=== PATIENT | female | born 1980 | race Caucasian/White ===

== ENCOUNTER 2016-02-26 21:53 | Emergency (ER) | payer OTHER ==
[~2016-02-26] VITALS: Ht 160 cm; Wt 72.6 kg
[~2016-02-26 21:53] MED LIST: ANAPROX DS550 MG PO; BACTRIM DS 8001 TA1 PO; CLEOCIN150 MG PO; CORTISPORIN SUS10 ML OT; CYCLOBENZAPRINE10 MG PO; CYCLOBENZAPRINE5 M3 PO; LEVOFLOXACIN500 MG PO; Motrin,Rufen800 MG PO; NAPROSYN500 MG PO; NKHM; NORCO 325 MG-51 TAB PO; NORCO 5-325 TA1 EACH PO; OVRAL-21 50 MCG1 TAB PO; PEN-VEE K500 MG PO; ROBITUSSIN DM120 ML PO; SEPTRA DS 800 M1 TAB PO; SERTRALINE HYDR50 MG PO; ULTRAM50 MG PO; VICODIN 5/500 505 MG PO; VOLTAREN50 M1 PO; [UNRECOGNIZED DRUG - CODE]
[2016-02-26] MEDS ORDERED: CYCLOBENZAPRINE10 MG PO (23:06)
[2016-02-26] MEDS ORDERED: NAPROSYN500 MG PO (23:06)
== END 2016-02-27 00:34 | disposition home or self-care (01) ==
LOC: ED 21:53
DX: S16.1XXA Strain of muscle, fascia and tendon at neck level, initial encounter (principal); S00.03XA Contusion of scalp, initial encounter; Z88.0 Allergy status to penicillin; W22.8XXA Striking against or struck by other objects, initial encounter; Y93.89 Activity, other specified; Y92.9 Unspecified place or not applicable; Y99.9 Unspecified external cause status

== ENCOUNTER 2017-02-13 22:39 | Emergency (ER) | payer OTHER ==
[~2017-02-13] VITALS: Ht 160 cm; Wt 72.6 kg
[2017-02-14] MEDS ORDERED: TESSALON PERLE100 MG PO (00:03)
== END 2017-02-14 00:10 | disposition home or self-care (01) ==
LOC: ED 22:39
DX: J06.9 Acute upper respiratory infection, unspecified (principal); Z88.0 Allergy status to penicillin; Z79.899 Other long term (current) drug therapy

== ENCOUNTER 2018-01-16 15:13 | Emergency (ER) | payer SELFPAY ==
[~2018-01-16] VITALS: Wt 83.9 kg
--- NOTE | ~2018-01-16 | EKG ---
[place], [place] ELECTROCARDIOGRAM REPORT NAME: MARINA BARNETT UNIT #: [id number] ROOM: DOCTOR: EPIPHANY DRAFT REPORT BIRTHDATE: [birth year] [facility] Test Date: 2018-01-16 Test Time: 16:04:04 Pat Name: MARINA BARNETT Department: ER Room: Gender: F [employer]: Nadeen Dowell : 1980 Requested By: JENNIE RAMIREZ Order Number: [id number] Reading MD: Berta Mercado MD Measurements Intervals [place] Rate: 89 P: 49 MS: 134 QRS: 4 QRSD: 91 T: 3 QT: 342 QTc: 417 Interpretive Statements Sinus rhythm RSR' in V1 Baseline wander in lead(s) V2 Electronically Signed On 01-17-2018 3:22:09 PST by Berta Mercado MD CM:EKGRPT:ELECTROCARDIOGRAM REPORT [id number] JENNIE RAMIREZ EPIPHANY DRAFT REPORT JENNIE RAMIREZ
[~2018-01-16 15:13] MED LIST changes: +TESSALON PERLE100 MG PO
[2018-01-16 16:25] LABS: BASO # 0.1 10*3/uL (0.0-0.1); BASO % 0.6 % (0.0-1.0); EOS # 0.7 10*3/uL (0.0-0.4); EOS % 6.9 % (1.0-4.0); LYMPH % 29.5 % (27.0-41.0); MEAN CELL VOLUME 89.7 fl (81.0-99.0); MEAN CORPUSCULAR HGB 30.6 pg (27.0-31.0); MEAN CORPUSCULAR HGB CONC 34.1 g/dl (33.0-37.0); MEAN PLATELET VOLUME 10.1 fl (9.6-12.3); MONO # 0.8 10*3/uL (0.1-1.0); MONO % 7.5 % (3.0-9.0); NEUT # 5.7 10*3/uL (2.3-7.9); NEUT % 55.1 % (47.0-73.0); PLATELET COUNT AUTOMATED 230 10*3/uL (130-400); RED BLOOD COUNT 4.57 10*6/uL (4.10-5.10); RED CELL DISTRI WIDTH 12.9 % (0-14.5); WHITE BLOOD COUNT 10.3 10*3/uL (4.8-10.8)
[2018-01-16 16:42] LABS: ALBUMIN 3.5 gm/dl (3.1-4.5); ALKALINE PHOSPHATASE 42 U/L (45-117); BUN 13 mg/dl (7-24); CHLORIDE 103 mmol/L (98-107); CREATININE 1.17 mg/dL (0.55-1.02); POTASSIUM 3.6 mmol/L (3.5-5.1); SGOT/AST 17 IU/L (3-35); SGPT/ALT 37 U/L (12-78); SODIUM 136 mmol/L (136-145); TOTAL PROTEIN 7.6 gm/dL (6.4-8.2)
[2018-01-16 16:45] LABS: TROPONIN I < 0.015 ng/ml (<0.045)
[2018-01-16 17:50] LABS: BILIRUBIN NEGATIVE (NEGATIVE); BLOOD NEGATIVE (NEGATIVE); CLARITY CLEAR (CLEAR); COLOR YELLOW (YELLOW); GLUCOSE NEGATIVE (NEGATIVE); KETONE NEGATIVE (NEGATIVE); LEUKO ESTERASE NEGATIVE (NEGATIVE); NITRITE NEGATIVE (NEGATIVE); PH 6.5 (5.0-9.0); SPECIFIC GRAVITY 1.015 (1.005-1.030); UROBILINOGEN 0.2 E.U./dl (0.2-1.0)
[2018-01-16] MEDS ORDERED: ZITHROMAX250 MG PO (17:52)
[2018-01-16] MEDS ORDERED: CHERATUSSIN AC118 M1 PO (17:52)
[2018-01-16] MEDS ORDERED: PREDNISONE20 M1 PO (17:52)
[2018-01-16] MEDS ORDERED: ALBUTEROL2.5 MG/0.5 INH (17:52)
[2018-01-16 18:00] LABS: BACTERIA 1+
[2018-01-16 18:01] LABS: RBC 0-2 rbc/hpf (0-2); WBC 0-2 wbc/hpf (0-5)
== END 2018-01-16 17:55 | disposition home or self-care (01) ==
LOC: ED 15:13
PROVIDERS: Nurse Practitioner
DX: J40 Bronchitis, not specified as acute or chronic (principal); Z88.0 Allergy status to penicillin; Z79.899 Other long term (current) drug therapy; Z98.51 Tubal ligation status; Z90.49 Acquired absence of other specified parts of digestive tract; Z77.22 Contact with and (suspected) exposure to environmental tobacco smoke (acute) (chronic)

== ENCOUNTER 2018-03-04 02:25 | Emergency (ER) | payer SELFPAY ==
[~2018-03-04] VITALS: Wt 83.9 kg
[~2018-03-04 02:25] MED LIST changes: +ALBUTEROL2.5 MG/0.5 INH; +CHERATUSSIN AC118 M1 PO; +PREDNISONE20 M1 PO; +ZITHROMAX250 MG PO
== END 2018-03-04 03:23 | disposition home or self-care (01) ==
LOC: ED 02:25
DX: S93.402A Sprain of unspecified ligament of left ankle, initial encounter (principal); Z88.0 Allergy status to penicillin; Z79.2 Long term (current) use of antibiotics; Z79.899 Other long term (current) drug therapy; X50.1XXA Overexertion from prolonged static or awkward postures, initial encounter; Y93.01 Activity, walking, marching and hiking; Y92.89 Other specified places as the place of occurrence of the external cause; Y99.8 Other external cause status

== ENCOUNTER → 2019-01-01 | Outpatient (CLI) | payer SELFPAY | END | disposition home or self-care (01) | LOC: RESCLI 00:16 | DX: Z13.39 Encounter for screening examination for other mental health and behavioral disorders (principal); F41.0 Panic disorder [episodic paroxysmal anxiety]; E66.09 Other obesity due to excess calories; F10.10 Alcohol abuse, uncomplicated; R53.83 Other fatigue; F32.9 Major depressive disorder, single episode, unspecified; Z68.33 Body mass index [BMI] 33.0-33.9, adult; Z79.899 Other long term (current) drug therapy; Z88.0 Allergy status to penicillin ==

== ENCOUNTER → 2019-01-02 | Outpatient (CLI) | payer SELFPAY ==
[2019-01-02 15:21] LABS: BASO # 0.1 10*3/uL (0.0-0.1); EOS # 0.3 10*3/uL (0.0-0.4); HEMATOCRIT 42.9 % (37.0-47.0); HEMOGLOBIN 14.5 g/dl (12.0-16.0); LYMPH # 2.5 10*3/uL (1.3-4.4); LYMPH % 35.1 % (27.0-41.0); MEAN CELL VOLUME 90.9 fl (81.0-99.0); MEAN CORPUSCULAR HGB 30.7 pg (27.0-31.0); MEAN CORPUSCULAR HGB CONC 33.8 g/dl (33.0-37.0); MEAN PLATELET VOLUME 10.3 fl (9.6-12.3); MONO # 0.5 10*3/uL (0.1-1.0); MONO % 6.3 % (3.0-9.0); NEUT # 3.8 10*3/uL (2.3-7.9); NEUT % 53.3 % (47.0-73.0); PLATELET COUNT AUTOMATED 266 10*3/uL (130-400); RED BLOOD COUNT 4.72 10*6/uL (4.10-5.10); RED CELL DISTRI WIDTH 12.7 % (0-14.5); WHITE BLOOD COUNT 7.2 10*3/uL (4.8-10.8)
[2019-01-02 15:53] LABS: ALBUMIN 3.6 gm/dl (3.1-4.5); BUN 9 mg/dl (7-24); CHLORIDE 107 mmol/L (98-107); CHOLESTEROL 184 mg/dL (<200); POTASSIUM 3.7 mmol/L (3.5-5.1); SGOT/AST 22 IU/L (3-35); SGPT/ALT 34 U/L (12-78); SODIUM 139 mmol/L (136-145); TRIGLYCERIDES 90 mg/dl (<150); VLDL CHOLESTEROL 18 mg/dL (6-40)
[2019-01-02 16:00] LABS: ALKALINE PHOSPHATASE 42 U/L (45-117); HDL CHOLESTEROL 57 mg/dl (40-60); LDL CHOLESTEROL 109 mg/dL (9-159); TOTAL PROTEIN 7.9 gm/dL (6.4-8.2)
== END | disposition home or self-care (01) ==
LOC: LAB 15:05
PROVIDERS: Internal Medicine
DX: E66.09 Other obesity due to excess calories (principal); R53.83 Other fatigue

== ENCOUNTER → 2019-01-13 | Outpatient (CLI) | payer SELFPAY | END | disposition home or self-care (01) | LOC: RESCLI 01:11 | DX: Z12.39 Encounter for other screening for malignant neoplasm of breast (principal); F41.0 Panic disorder [episodic paroxysmal anxiety]; E66.09 Other obesity due to excess calories; F10.10 Alcohol abuse, uncomplicated; R53.83 Other fatigue; Z88.0 Allergy status to penicillin; Z88.8 Allergy status to other drugs, medicaments and biological substances; Z79.899 Other long term (current) drug therapy ==

== ENCOUNTER → 2019-02-17 | Outpatient (CLI) | payer SELFPAY | END | disposition home or self-care (01) | LOC: RESCLI 01:36 | DX: F41.0 Panic disorder [episodic paroxysmal anxiety] (principal); E55.9 Vitamin D deficiency, unspecified; F10.10 Alcohol abuse, uncomplicated; Z79.899 Other long term (current) drug therapy; Z88.0 Allergy status to penicillin; Z88.8 Allergy status to other drugs, medicaments and biological substances ==

== ENCOUNTER 2019-02-21 19:22 | Emergency (ER) | payer SELFPAY ==
[~2019-02-21] VITALS: Ht 160 cm; Wt 86.2 kg
[2019-02-21 21:51] LABS: BILIRUBIN NEGATIVE (NEGATIVE); BLOOD NEGATIVE (NEGATIVE); CLARITY SL CLOUDY (CLEAR); COLOR YELLOW (YELLOW); GLUCOSE NEGATIVE (NEGATIVE); KETONE NEGATIVE (NEGATIVE); LEUKO ESTERASE NEGATIVE (NEGATIVE); NITRITE NEGATIVE (NEGATIVE); SPECIFIC GRAVITY >= 1.030 (1.005-1.030); UROBILINOGEN 0.2 E.U./dl (0.2-1.0)
[2019-02-21 21:59] LABS: BACTERIA 2+; MUCOUS TRACE; RBC 0-2 rbc/hpf (0-2); WBC 0-2 wbc/hpf (0-5)
[2019-02-21] MEDS ORDERED: Motrin,Rufen800 MG PO (23:49)
[2019-02-21] MEDS ORDERED: CYCLOBENZAPRINE5 M3 PO (23:49)
== END 2019-02-21 23:57 | disposition home or self-care (01) ==
LOC: ED 19:22
PROVIDERS: Emergency Medicine Emergency Medical Services
DX: S39.012A Strain of muscle, fascia and tendon of lower back, initial encounter (principal); Z88.0 Allergy status to penicillin; Z88.6 Allergy status to analgesic agent; Z79.899 Other long term (current) drug therapy; X58.XXXA Exposure to other specified factors, initial encounter; Y93.89 Activity, other specified; Y92.89 Other specified places as the place of occurrence of the external cause; Y99.8 Other external cause status

== ENCOUNTER 2019-04-13 15:16 | Emergency (ER) | payer SELFPAY ==
[~2019-04-13] VITALS: Ht 160 cm; Wt 83.9 kg
[2019-04-13] MEDS ORDERED: CLEOCIN HCL150 MG PO (15:58)
[2019-04-13] MEDS ORDERED: IBU800 MG PO (15:58)
== END 2019-04-13 16:10 | disposition home or self-care (01) ==
LOC: ED 15:16
DX: K04.7 Periapical abscess without sinus (principal); Z88.0 Allergy status to penicillin; Z88.6 Allergy status to analgesic agent; Z79.899 Other long term (current) drug therapy; Z79.2 Long term (current) use of antibiotics

== ENCOUNTER → 2019-05-01 | Outpatient (CLI) | payer SELFPAY ==
[~2019-05-01] MED LIST changes: +CLEOCIN HCL150 MG PO; +IBU800 MG PO
== END | disposition home or self-care (01) ==
LOC: RESCLI 01:03
DX: Z12.4 Encounter for screening for malignant neoplasm of cervix (principal); Z12.39 Encounter for other screening for malignant neoplasm of breast; F41.0 Panic disorder [episodic paroxysmal anxiety]; E55.9 Vitamin D deficiency, unspecified; R14.0 Abdominal distension (gaseous); Z88.0 Allergy status to penicillin; Z79.899 Other long term (current) drug therapy

== ENCOUNTER → 2020-01-18 | Outpatient (CLI) | payer BC | END | disposition home or self-care (01) | LOC: COVID19 14:34 | PROVIDERS: ATTEND Internal Medicine | DX: Z20.828 Contact with and (suspected) exposure to other viral communicable diseases (principal) ==

== ENCOUNTER → 2020-02-02 | Outpatient (CLI) | payer BC | END | disposition home or self-care (01) | LOC: COVID19 15:13 | PROVIDERS: ATTEND Internal Medicine | DX: Z20.828 Contact with and (suspected) exposure to other viral communicable diseases (principal) ==

== ENCOUNTER 2020-02-04 09:38 | Emergency (ER) | payer BC ==
[~2020-02-04] VITALS: Ht 160 cm; Wt 90.7 kg
== END 2020-02-04 11:56 | disposition home or self-care (01) ==
LOC: ED 09:38
DX: R06.02 Shortness of breath (principal); R05 Cough; Z20.828 Contact with and (suspected) exposure to other viral communicable diseases; Z88.0 Allergy status to penicillin; Z88.8 Allergy status to other drugs, medicaments and biological substances; Z79.899 Other long term (current) drug therapy

== ENCOUNTER 2021-05-04 18:36 | Emergency (ER) | payer SELFPAY ==
[~2021-05-04] VITALS: Wt 90.7 kg
[2021-05-04] MEDS ORDERED: CLINDAMYCIN HC300 MG PO (19:11)
== END 2021-05-04 19:42 | disposition home or self-care (01) ==
LOC: ED 18:36
DX: K04.7 Periapical abscess without sinus (principal); Z88.0 Allergy status to penicillin; Z88.6 Allergy status to analgesic agent; Z79.899 Other long term (current) drug therapy; Z98.890 Other specified postprocedural states

== ENCOUNTER 2022-08-15 22:26 | Emergency (ER) | payer OTHER ==
[~2022-08-15] VITALS: Ht 160 cm; Wt 90.7 kg
[~2022-08-15 22:26] MED LIST changes: +CLINDAMYCIN HC300 MG PO
[2022-08-15] MEDS ORDERED: VIBRAMYCIN100 MG PO (23:53)
[2022-08-15] MEDS ORDERED: GOOD NEIGHBOR L10 MG PO (23:55)
== END 2022-08-16 00:30 | disposition home or self-care (01) ==
LOC: ED 22:26
DX: N61.0 Mastitis without abscess (principal); F32.A Depression, unspecified; Z88.0 Allergy status to penicillin; Z88.6 Allergy status to analgesic agent; Z88.5 Allergy status to narcotic agent; Z98.890 Other specified postprocedural states